=== PATIENT | female | born 2005 | race Caucasian/White ===

== ENCOUNTER 2025-01-26 00:45 | Emergency (ER) | payer MEDICAID ==
[~2025-01-26] VITALS: Ht 152.4 cm; Wt 96.6 kg
[2025-01-26] MEDS ORDERED: IBUP-1490 PO (01:44)
[2025-01-26] MEDS ORDERED: IBUPROFEN 600 MG TABLET ONE (01:46)
[2025-01-26] MEDS: IBUPROFEN 600 MG TABLET PO ONE (01:48)
[2025-01-26 02:08] VITALS: BP 123/71; TEMP 98; O2SAT 97
== END 2025-01-26 02:10 | disposition home or self-care (01) ==
LOC: ER 00:55
DX: M79.604 Pain in right leg (principal)